=== PATIENT | male | born 1975 | race Caucasian/White ===

== ENCOUNTER → 2016-10-17 | Outpatient (REF) | payer OTHER | END | disposition home or self-care (01) | LOC: M LABDRAW1 11:43 | PROVIDERS: ATTEND Physician Assistant Medical | DX: E29.1 Testicular hypofunction (principal) ==

== ENCOUNTER → 2017-01-16 | Outpatient (REF) | payer OTHER ==
[2017-01-19 10:17] LABS: TESTOSTERONE %FREE+WEAKLY BOUN 27.8 % (9.0-46.0); TESTOSTERONE FREE+WEAKLY BOUND 293.6 ng/dL (40.0-250.0)
== END ==
LOC: M LABDRAW1 11:25
PROVIDERS: ATTEND Physician Assistant Medical
DX: E29.1 Testicular hypofunction (principal)